=== PATIENT | female | born 1960 | race Caucasian/White ===

== ENCOUNTER → 2021-08-09 13:27 | Outpatient (BNVA) | payer MEDICARE, MEDICAID, SELFPAY | PROVIDERS: PCP Nurse Practitioner Adult Health; Visit Provider Surgery | DX: K43.2 Incisional hernia without obstruction or gangrene (principal); E66.01 Morbid (severe) obesity due to excess calories; D82.1 Di George's syndrome; I25.10 Atherosclerotic heart disease of native coronary artery without angina pectoris; G47.33 Obstructive sleep apnea (adult) (pediatric); N18.30 Chronic kidney disease, stage 3 unspecified; E20.9 Hypoparathyroidism, unspecified; E03.9 Hypothyroidism, unspecified; J98.4 Other disorders of lung; F41.0 Panic disorder [episodic paroxysmal anxiety]; K21.9 Gastro-esophageal reflux disease without esophagitis; R92.8 Other abnormal and inconclusive findings on diagnostic imaging of breast; I72.8 Aneurysm of other specified arteries; Z87.898 Personal history of other specified conditions; Z86.2 Personal history of diseases of the blood and blood-forming organs and certain disorders involving the immune mechanism; Z99.89 Dependence on other enabling machines and devices | CPT/HCPCS: 99202 ==